=== PATIENT | female | born 1965 | race Caucasian/White ===

== ENCOUNTER 2017-01-21 17:44 | Emergency (ER) | payer SELFPAY ==
[~2017-01-21] VITALS: Ht 180.3 cm; Wt 74.8 kg
[2017-01-21 17:49] VITALS: BP 135/81
[2017-01-21] MEDS ORDERED: MISCELLANEOUS MED 1 EA EA XX ONE (18:00)
[2017-01-21] MEDS ORDERED: ONDANSETRON 4 MG TAB.RAPDIS SL ONE (18:00)
[2017-01-21] MEDS ORDERED: HYDROCODONE/APAP 5/325MG 1 EACH TABLET PO ONE (18:00)
[2017-01-21] MEDS ORDERED: TDAP [DIPH/PERTUSSIS/TET] 0.5 ML VIAL IM ONE ×2 (18:00→18:34)
[2017-01-21] MEDS ORDERED: POVIDONE-IODINE OINT 28.4 GM TUBE TP ONE (18:00)
[2017-01-21] MEDS ORDERED: HYDROCODONE/APAP 5/325MG 1 EACH TABLET ONE (18:29)
[2017-01-21] MEDS ORDERED: ONDANSETRON 4 MG TAB.RAPDIS ONE (18:34)
== END 2017-01-21 19:05 | disposition home or self-care (01) ==
LOC: ER 17:48
DX: S01.25XA Open bite of nose, initial encounter (principal); S01.21XA Laceration without foreign body of nose, initial encounter; W54.0XXA Bitten by dog, initial encounter; Y93.89 Activity, other specified; Y92.89 Other specified places as the place of occurrence of the external cause; Y99.8 Other external cause status
CPT/HCPCS: 12011; 70486; 90471; 90715; 99284; A4606; A6402; Q0162; Z7610

== ENCOUNTER 2023-06-14 07:37 | Emergency (ER) | payer BC ==
[~2023-06-14] VITALS: Ht 157.5 cm; Wt 54.4 kg
[2023-06-14 08:07] VITALS: BP 108/78; TEMP 98.6; O2SAT 97
[2023-06-14] MEDS ORDERED: SULF1TAB48 PO (09:10)
[2023-06-14] MEDS ORDERED: IBUPROFEN 600 MG TABLET ONE (09:38)
[2023-06-14] MEDS ORDERED: IBUPROFEN 600 MG TABLET PO ONE (10:00)
== END 2023-06-14 09:46 | disposition home or self-care (01) ==
LOC: ER 07:44
DX: L03.012 Cellulitis of left finger (principal)